=== PATIENT | male | born 1985 | race Caucasian/White ===

== ENCOUNTER 2021-03-19 05:52 | Emergency (ER) | payer BC ==
[~2021-03-19] VITALS: Ht 180.3 cm; Wt 95.3 kg
[2021-03-19 05:57] VITALS: BP_SYST 129
--- NOTE | 2021-03-19 05:57 | NUR ---
Patient to ER bed 6 to gown for evaluation. Side rails up.
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
--- NOTE | 2021-03-19 06:07 | NUR ---
ER Dr. Grover at bedside examining patient.
--- NOTE | 2021-03-19 06:21 | NUR ---
X-ray at bedside.
[2021-03-19] MEDS ORDERED: HYDR-3917 PO (06:36)
[2021-03-19] MEDS ORDERED: IBUP-1971 PO (06:36)
--- NOTE | 2021-03-19 06:59 | NUR ---
Patient called [employer] for a ride .
[2021-03-19 07:01] VITALS: BP_SYST 129
--- NOTE | 2021-03-19 07:01 | NUR ---
Patient given written and verbal discharge instructions and verbalizes understanding. ER MD discussed with patient the results and treatment provided. Patient in stable condition. ID arm band removed. Rx of Beverly and Ibuprofen given. Patient educated on pain management and to follow up with PMD. Pain Scale 1/10. Opportunity for questions provided and answered. Medication side effect fact sheet provided.
== END 2021-03-19 07:01 | disposition home or self-care (01) ==
LOC: SED 05:52
DX: S93.402A Sprain of unspecified ligament of left ankle, initial encounter (principal); V09.9XXA Pedestrian injured in unspecified transport accident, initial encounter; Y93.89 Activity, other specified; Y92.89 Other specified places as the place of occurrence of the external cause; Y99.8 Other external cause status
CPT/HCPCS: 99283